=== PATIENT | female | born 1935 | race Caucasian/White ===

== ENCOUNTER 2018-05-17 12:28 | Emergency (ER) | payer OTHER ==
[~2018-05-17] VITALS: Ht 152.4 cm; Wt 61.2 kg
== END 2018-05-17 18:44 | disposition home or self-care (01) ==
LOC: ER 12:28
DX: S05.12XA Contusion of eyeball and orbital tissues, left eye, initial encounter (principal); S01.81XA Laceration without foreign body of other part of head, initial encounter; W18.39XA Other fall on same level, initial encounter; Y93.89 Activity, other specified; Y92.488 Other paved roadways as the place of occurrence of the external cause; Y99.8 Other external cause status